=== PATIENT | female | born 1990 | race Caucasian/White ===

== ENCOUNTER → 2021-03-25 09:01 | Outpatient (CLI) | payer OTHER, SELFPAY ==
[2021-03-25 10:07] LABS: NATERA MAILED SPECIMEN
== END ==
PROVIDERS: Referring Provider Obstetrics & Gynecology; Visit Provider Obstetrics & Gynecology
DX: Z31.430 Encounter of female for testing for genetic disease carrier status for procreative management (principal)
CPT/HCPCS: 36415